=== PATIENT | male | born 1990 | race Caucasian/White ===

== ENCOUNTER 2018-03-17 16:57 | Emergency (ER) | payer BC ==
[~2018-03-17] VITALS: Ht 170.2 cm; Wt 95.3 kg
[2018-03-17 17:58] LABS: HEMATOCRIT 48.7 % (38.0-50.0); HEMOGLOBIN 17.2 G/DL (12.5-16.6); MCH 29.4 PG (29.0-34.0); MCHC 35.3 G/DL (30.0-36.0); MCV 83.1 FL (86-99); PLATELET COUNT 288 K/uL (156-360); RBC DIS.WIDTH-CV 11.9 % (11.8-14.6); RBC DIS.WIDTH-SD 36.3 % (39-53); RED BLOOD COUNT 5.86 M/uL (4.00-5.50); WHITE BLOOD COUNT 12.8 K/uL (4.1-10.2)
[2018-03-17 18:07] LABS: CHLORIDE 103 mEq/L (99-109); SODIUM 142 mEq/L (136-147)
[2018-03-17 18:09] LABS: GLUCOSE 100 mg/dL (70-99); TOTAL PROTEIN 8.1 g/dL (6.4-8.3)
[2018-03-17 18:11] LABS: TOTAL BILIRUBIN 0.5 mg/dL (0.0-1.0)
[2018-03-17 18:13] LABS: ALKALINE PHOSPHATASE 49 IU/L (3-129); CREATININE 1.3 mg/dL (0.6-1.3); GFR ESTIMATE (CALCULATED) > 59 mL/min/ (58.99-99999)
[2018-03-17 18:14] LABS: UREA NITROGEN (BUN) 13 mg/dL (9-23)
[2018-03-17 18:15] LABS: AST (GOT) 27 IU/L (2-34)
[2018-03-17 18:16] LABS: ALT (GPT) 37 IU/L (3-49)
[2018-03-17 18:30] LABS: APPEARANCE CLEAR ((CLEAR)); BILIRUBIN NEGATIVE; BLOOD SMALL; COLOR YELLOW ((YELLOW)); GLUCOSE (STRIP) NEGATIVE; KETONES NEGATIVE; LEUKOCYTES NEGATIVE; NITRITE NEGATIVE; PROTEIN (STRIP) NEGATIVE; UROBILINOGEN 0.2 MG/DL (0.2-1.0)
[2018-03-17 18:38] LABS: AMYLASE 77 IU/L (1-118)
[2018-03-17 18:38] LABS: BACTERIA NONE SEEN /HPF; EPITHELIAL CELLS NONE SEEN /HPF; MUCUS TRACE /LPF; RED BLOOD CELLS 0-5 /HPF (0-5); UCUL ADDED? NO; WHITE BLOOD CELLS NONE SEEN /HPF (0-5)
[2018-03-17 18:47] LABS: LIPASE 24 U/L (1.0-51.0)
[2018-03-17] MEDS ORDERED: MOTRIN600 MG PO (20:17)
[2018-03-17] MEDS ORDERED: FLEXERIL10 MG PO (20:17)
[2018-03-17 20:30] VITALS: BP 139/89
== END 2018-03-17 20:30 | disposition home or self-care (01) ==
LOC: EME 16:57
DX: R10.11 Right upper quadrant pain (principal)
CPT/HCPCS: 71046; 76705; 80053; 81003; 82150; 83690; 85027; 99281; 99283; J1885